=== PATIENT | male | born 1995 | race Caucasian/White ===

== ENCOUNTER 2018-01-17 20:06 | Emergency (ER) | payer SELFPAY ==
[2018-01-17] MEDS ORDERED: Sodium Chloride 0.9% 2.5 ML Syringe FLUSH PRN (20:44)
[2018-01-17] MEDS ORDERED: Ondansetron 4 MG/2 ML SDV IVPUSH ONE (20:44)
[2018-01-17] MEDS ORDERED: Sodium Chloride 0.9% 1,000 ML IV ONE (20:44)
[2018-01-17] MEDS ORDERED: Pantoprazole 40 MG Vial IVPUSH ONE (20:44)
[2018-01-17] MEDS ORDERED: Sodium Chloride 0.9% 10 ML Syringe FLUSH PRN (20:44)
--- NOTE | 2018-01-17 20:47 | EDM.PDOC ---
ED HPI GENERAL MEDICAL PROBLEM - General Chief Complaint: Abdominal Pain Stated Complaint: PT HAS STOMACH PAINS Time Seen by Provider: 01/17/18 20:37 - History of Present Illness INITIAL COMMENTS - FREE TEXT/NARRATIVE: HISTORY AND PHYSICAL: History of present illness: Patient is a 22-year-old male with a history of one month of dull mid epigastric discomfort that is not excruciating but has triggered him to have a crease appetite. The patient says he has also had only scant bowel movements over the last 2 weeks which is unusual for him and he is also been intermittently vomiting for the last 1 week with this lack of appetite. The patient said he ate a meal today even though he was not hungry and he vomited that up. He has not used any aslz-lgo-[id number] medications. The patient says that the pain is not sharp and does not localize right or left nor does it radiate to his back. He has no lower abdominal pain no urinary symptoms and no recent trauma. The patient says that in the past he has had intermittent bouts of "heartburn" but he does not relate any particular food as causing this or having food intolerance. The patient says that time of day does not affect the discomfort but he says that food seems to make it somewhat worse. He has no abdominal surgical history and has never been seen by GI. He has no local family physician. The patient states he does drink caffeine and occasional alcohol but not on a regular basis and he does try to eat healthy and push hydration. Review of systems: As per history of present illness and below otherwise all systems reviewed and negative. Past medical history: As per history of present illness and as reviewed below otherwise noncontributory. Surgical history: As per history of present illness and as reviewed below otherwise noncontributory. Social history: No reported history of drug or alcohol abuse. Family history: As per history of present illness and as reviewed below otherwise noncontributory. Physical exam: General: Well-developed well-nourished man who is nontoxic and vital signs have been reviewed by me HEENT: Atraumatic, normocephalic, pupils reactive, negative for conjunctival pallor or scleral icterus, mucous membranes moist, throat clear, neck supple, nontender, trachea midline. Lungs: Clear to auscultation, breath sounds equal bilaterally, chest nontender. Heart: S1S2, regular rate and rhythm no overt murmurs Abdomen: Soft, nondistended, minimal epigastric tenderness on deep palpation without rebound or guarding, bowel sounds are hypoactive Negative for masses or hepatosplenomegaly. Negative for costovertebral tenderness. Pelvis: Stable nontender. Genitourinary: Deferred. Rectal: Deferred. Extremities: Atraumatic, negative for cords or calf pain. Neurovascular unremarkable. Neuro: Awake, alert, oriented. Cranial nerves II through XII unremarkable. Cerebellum unremarkable. Motor and sensory unremarkable throughout. Exam nonfocal. Diagnostics: CBC CMP amylase lipase H. pylori CT scan of the abdomen and pelvis Therapeutics: IV IV fluids Zofran and Protonix He is aware of all testing results and care plan for home including follow-up for possible endoscopy and Carafate and Zofran. Impression: Abdominal pain chronic with constipation and episodic vomiting stable Definitive disposition and diagnosis as appropriate pending reevaluation and review of above. Abdomen Pain Score (Numeric/FACES): 2 - Related Data Allergies Allergy/AdvReac Type Severity Reaction Status Date / Time No Known Allergies Allergy Verified 01/17/18 20:32 Home Meds: Home Meds . [No Known Home Meds] 05/21/15 [History] Past Medical History HEENT History: Reports: None Other HEENT History: strepthroat 3 years ago Cardiovascular History: Reports: None Respiratory History: Reports: None Gastrointestinal History: Reports: None Genitourinary History: Reports: None Musculoskeletal History: Reports: None Neurological History: Reports: None Psychiatric History: Reports: None Endocrine/Metabolic History: Reports: None Hematologic History: Reports: None Immunologic History: Reports: None Oncologic (Cancer) History: Reports: None Dermatologic History: Reports: None - Infectious Disease History Infectious Disease History: Reports: None - Past Surgical History Head Surgeries/Procedures: Reports: None Endocrine Surgical History: Reports: None Social & Family History - Family History Family Medical History: Noncontributory - Tobacco Use Smoking Status *Q: Former Smoker Years of Tobacco use: 3 Packs/Tins Daily: 0.4 Used Tobacco, but Quit: No - Caffeine Use Caffeine Use: Reports: None - Alcohol Use Days Per Week of Alcohol Use: 1 Number of Drinks Per Day: 1 Total Drinks Per Week: 1 - Recreational Drug Use Recreational Drug Use: No Drug Use in Last 12 Months: Yes Recreational Drug Type: Reports: Marijuana/Hashish ED [facility] GENERAL - Review of Systems Review Of Systems: ROS reveals no pertinent complaints other than HPI. ED EXAM, GENERAL - Physical Exam Exam: See Below (See dictation) Course - Vital Signs Last Recorded V/S: Last Vital Signs Temp 37.1 C 01/17/18 20:32 Pulse 86 01/17/18 20:32 Resp 18 01/17/18 20:32 BP 126/77 01/17/18 20:32 Pulse Ox 98 01/17/18 20:32 - Orders/Labs/Meds Orders: Active Orders 24 hr Category Date Time Status Abdomen Pelvis w Cont [CT] Stat Exams 01/17/18 20:44 Taken Sodium Chloride 0.9% [Saline Flush] Med 01/17/18 20:44 Active 10 ml FLUSH ASDIRECTED PRN Sodium Chloride 0.9% [Saline Flush] Med 01/17/18 20:44 Active 2.5 ml FLUSH ASDIRECTED PRN Saline Lock Insert [OM.PC] Stat Oth 01/17/18 20:43 Ordered Medication Orders Sodium Chloride (Saline Flush) 10 ml FLUSH ASDIRECTED PRN PRN Reason: Keep Vein Open Last Admin: 01/17/18 20:57 Dose: 10 ml Sodium Chloride (Saline Flush) 2.5 ml FLUSH ASDIRECTED PRN PRN Reason: Keep Vein Open Last Admin: 01/17/18 20:56 Dose: 2.5 ml Labs: Laboratory Tests 01/17/18 01/17/18 01/17/18 Range/Units 20:52 20:52 20:52 WBC 9.69 (4.0-11.0) K/uL RBC 5.08 (4.50-5.90) M/uL Hgb 15.4 (13.0-17.0) g/dL Hct 43.8 (38.0-50.0) % MCV 86.2 (80.0-98.0) fL MCH 30.3 (27.0-32.0) pg MCHC 35.2 (31.0-37.0) g/dL RDW Std Deviation 43.0 (28.0-62.0) fl RDW Coeff of Joanne 14 (11.0-15.0) % Plt Count 236 (150-400) K/uL MPV 9.40 (7.40-12.00) fL Neut % (Auto) 60.7 (48.0-80.0) % Lymph % (Auto) 27.9 (16.0-40.0) % Karnes % (Auto) 10.1 (0.0-15.0) % Eos % (Auto) 0.9 (0.0-7.0) % Baso % (Auto) 0.4 (0.0-1.5) % Neut # (Auto) 5.9 H (1.4-5.7) K/uL Lymph # (Auto) 2.7 H (0.6-2.4) K/uL Karnes # (Auto) 1.0 H (0.0-0.8) K/uL Eos # (Auto) 0.1 (0.0-0.7) K/uL Baso # (Auto) 0.0 (0.0-0.1) K/uL Nucleated RBC % 0.0 /100WBC Nucleated RBCs # 0 K/uL Sodium 137 (136-148) mmol/L Potassium 3.6 (3.5-5.1) mmol/L Chloride 101 (98-107) mmol/L Carbon Dioxide 25.5 (21.0-32.0) mmol/L BUN 17 (7.0-18.0) mg/dL Creatinine 1.0 (0.8-1.3) mg/dL Est Cr Clr Drug Dosing 115.87 mL/min Estimated GFR (MDRD) > 60.0 ml/min Glucose 83 (74-106) mg/dL Calcium 9.6 (8.5-10.1) mg/dL Total Bilirubin 1.0 (0.2-1.0) mg/dL AST 24 (15-37) IU/L ALT 24 (14-63) IU/L Alkaline Phosphatase 75 (46-116) U/L Total Protein 7.9 (6.4-8.2) g/dL Albumin 4.6 (3.4-5.0) g/dL Globulin 3.3 (2.0-3.5) g/dL Albumin/Globulin Ratio 1.4 (1.3-2.8) Amylase 49 (25-115) U/L Lipase 77 (73-393) U/L H. pylori IgG Antibody NEGATIVE (NEG) Meds: Medications Generic Name Dose Route Start Last Admin Trade Name Freq PRN Reason Stop Dose Admin Sodium Chloride 10 ml 01/17/18 20:44 01/17/18 20:57 Saline Flush FLUSH 10 ml ASDIRECTED PRN Administration Keep Vein Open Sodium Chloride 2.5 ml 01/17/18 20:44 01/17/18 20:56 Saline Flush FLUSH 2.5 ml ASDIRECTED PRN Administration Keep Vein Open Discontinued Medications Generic Name Dose Route Start Last Admin Trade Name Chelly PRN Reason Stop Dose Admin Sodium Chloride 1,000 mls @ 999 mls/hr 01/17/18 20:44 01/17/18 20:57 Normal Saline IV 01/17/18 21:44 999 mls/hr STAT ONE Administration Iopamidol 100 ml 01/17/18 22:07 01/17/18 22:08 Isovue-370 (76%) IVPUSH 01/17/18 22:08 100 ml ONETIME STA Administration Ondansetron HCl 4 mg 01/17/18 20:44 01/17/18 21:02 Zofran IVPUSH 01/17/18 20:45 4 mg ONETIME ONE Administration Pantoprazole Sodium 40 mg 01/17/18 20:44 01/17/18 21:03 Protonix Iv IVPUSH 01/17/18 20:45 40 mg NOW ONE Administration Departure - Departure Time of Disposition: 22:40 Disposition: Home, Self-Care 01 Condition: Good Clinical Impression: Abdominal pain Qualifiers: Abdominal location: epigastric Qualified Code(s): R10.13 - Epigastric pain - Discharge Information Referrals: PCP,None [Primary Care Provider] - Forms: ED Department Discharge Additional Instructions: The following information is given to patients seen in the emergency department who are being discharged to home. This information is to outline your options for follow-up care. We provide all patients seen in our emergency department with a follow-up referral. The need for follow-up, as well as the timing and circumstances, are variable depending upon the specifics of your emergency department visit. If you don't have a primary care physician on staff, we will provide you with a referral. We always advise you to contact your personal physician following an emergency department visit to inform them of the circumstance of the visit and for follow-up with them and/or the need for any referrals to a consulting specialist. The emergency department will also refer you to a specialist when appropriate. This referral assures that you have the opportunity for followup care with a specialist. All of these measure are taken in an effort to provide you with optimal care, which includes your followup. Under all circumstances we always encourage you to contact your private physician who remains a resource for coordinating your care. When calling for followup care, please make the office aware that this follow-up is from your recent emergency room visit. If for any reason you are refused follow-up, please contact the [facility] emergency department at and ask to speak to the emergency department charge nurse. [facility]- Internal Medicine and [facility] [address] [place] [id number] Specialty Care-General Surgery Professional Building [address] [place] [id number] Please push hydration and avoid caffeinated products fast foods fatty foods and greasy foods. Please take all medications as prescribed and call and follow-up in our clinic for further care and evaluation as we discussed. Return to ER as needed and as discussed - My Orders Last 24 Hours: My Active Orders 01/17/18 20:43 Saline Lock Insert [OM.PC] Stat 01/17/18 20:44 Abdomen Pelvis w Cont [CT] Stat Sodium Chloride 0.9% [Saline Flush] 10 ml FLUSH ASDIRECTED PRN Sodium Chloride 0.9% [Saline Flush] 2.5 ml FLUSH ASDIRECTED PRN - Assessment/Plan Last 24 Hours: My Active Orders 01/17/18 20:43 Saline Lock Insert [OM.PC] Stat 01/17/18 20:44 Abdomen Pelvis w Cont [CT] Stat Sodium Chloride 0.9% [Saline Flush] 10 ml FLUSH ASDIRECTED PRN Sodium Chloride 0.9% [Saline Flush] 2.5 ml FLUSH ASDIRECTED PRN
[2018-01-17 21:36] LABS: CHLORIDE,CL 101 mmol/L (98-107); SODIUM,NA 137 mmol/L (136-148)
[2018-01-17] MEDS ORDERED: Iopamidol 755 Mg/ML 100 ML Bottle IVPUSH STA (22:07)
[2018-01-18 02:01] VITALS: BP 132/73
--- NOTE | 2018-01-18 10:23 | CT ---
EXAM DATE: 01/17/18 PATIENT'S AGE: 22 Patient: BETHANY EDWARDS Facility: [place], [place] Site . Site : 1995 Study: CT Abdomen/Pelvis W CONT [id number]/[id number] 10:12:15 PM Ordering Physician: Doctor Love Final Report: INDICATION: ABDOMINAL PAIN FOR 1 MONTH TECHNIQUE: CT abdomen and pelvis acquired with IV contrast. COMPARISON: None FINDINGS: Lower chest: Unremarkable. Liver: Unremarkable. Spleen: Unremarkable. Pancreas: Unremarkable. Gallbladder and bile ducts: Unremarkable. Kidneys: Unremarkable. Adrenal glands: Unremarkable. GI tract: Unremarkable. Appendix is normal. Vascular structures: Negative. No sign of aneurysm. Lymph nodes: Unremarkable. Miscellaneous: Unremarkable. No free air or significant free fluid. Pelvic Organs: Unremarkable. Bones: Unremarkable for age. IMPRESSION: No acute abnormality of the abdomen and pelvis. Dictated by Ward Hernandez MD @ 01/17/2018 10:24:08 PM Dictated by: Ward Hernandez MD @ 01/17/2018 22:24:25 (Electronic Signature) Report Signed by Proxy. [facility]
== END 2018-01-17 23:10 | disposition home or self-care (01) ==
LOC: MW.ED 20:06
DX: R10.13 Epigastric pain (principal); K59.00 Constipation, unspecified; Z87.891 Personal history of nicotine dependence
CPT/HCPCS: 36415; 74177; 80053; 82150; 83690; 85025; 86677; 96361; 96374; 96375; 99284; J2405; J7040; Q9967; 99283; C9113